=== PATIENT | female | born 1990 | race Caucasian/White ===

== ENCOUNTER 2022-04-30 14:58 | Inpatient (IN) ==
[2022-04-30] MEDS ORDERED: Ringers Solution, Lactated 1,000 ML IVC SCH (15:15)
[2022-04-30] MEDS ORDERED: Naloxone 0.4 MG/ML INJ IVP PRN (15:15)
[2022-04-30] MEDS ORDERED: Metoclopramide 10 MG/2 ML VIAL IVP PRN (15:15)
[2022-04-30] MEDS ORDERED: Azithromycin 500 MG in 0.9 % Sodium Chloride 250 ML IVPB PRN (15:15)
[2022-04-30] MEDS ORDERED: Ringers Solution, Lactated 1,000 ML ONE (15:15)
[2022-04-30] MEDS ORDERED: Oxytocin 30 UNIT/503 ML BAG IVC ONE (15:15)
[2022-04-30] MEDS ORDERED: Famotidine 20 MG/2 ML VIAL IVP PRN (15:15)
[2022-04-30] MEDS ORDERED: CeFAZolin Syr 3,000MG/30 ML 3,000 MG/30 ML SYRINGE IVPB ONE (15:17)
[2022-04-30] MEDS ORDERED: MetroNIDAZOLE 500 MG/100 ML 500 MG/100 ML BAG IVPB ONE (15:18)
[2022-04-30] MEDS ORDERED: *HR* Succinylcholine 200 MG/10 ML VIAL IVP ONE (15:23)
[2022-04-30] MEDS ORDERED: *HR* Propofol 200 MG/20 ML VIAL IVP ONE ×2 (15:23→15:47)
[2022-04-30] MEDS ORDERED: *HR* FentaNYL (PF) 100 MCG/2 ML VIAL ONE (15:28)
[2022-04-30] MEDS ORDERED: *HR* HYDROMORPHONE 2 MG/ML VIAL ONE (15:28)
[2022-04-30] MEDS ORDERED: *HR* Midazolam HCl 2 MG/2 ML VIAL ONE (15:37)
[2022-04-30 15:46] LABS: Basophils % 0.3 %; Eosinophils # 0.1 K/mcL (0.0-0.6); Eosinophils % 1.3 %; Hematocrit 37.4 % (35.3-44.9); Hemoglobin 12.1 g/dL (11.5-15.4); Immature Granulocytes % 1.1 % (0-4); Lymphocytes # 1.1 K/mcL (0.6-4.6); Lymphocytes % 10.2 %; Mean Corpuscular HGB Conc 32.4 g/dL (31.6-35.5); Mean Corpuscular Hemoglobin 27.3 pg (28.0-33.3); Mean Corpuscular Volume 84.4 fL (83.0-100.0); Monocytes # 0.4 K/mcL (0.0-1.3); Monocytes % 3.9 %; Neutrophils # 9.3 K/mcL (1.6-8.9); Platelet Count 191 K/mcL (140-400); Red Blood Count 4.43 M/mcL (3.82-4.97); Red Cell Distribution Width 14.5 % (11.5-14.5); Segmented Neutrophils % 83.2 %; White Blood Count 11.1 K/mcL (4.3-11.1)
[2022-04-30] MEDS ORDERED: *HR* Rocuronium Bromide 50 MG/5 ML VIAL ONE (15:53)
[2022-04-30 15:54] LABS: Alanine Aminotransferase 12 Units/L (7-52); Aspartate Amino Transferase 16 Units/L (13-39); BUN/Creatinine Ratio 19 (6-26); Blood Urea Nitrogen 15 mg/dL (6-20); Lactate Dehydrogenase 198 Units/L (140-271); Uric Acid 6.1 mg/dL (2.3-7.6)
[2022-04-30] MEDS ORDERED: Ketorolac 30 MG/ML VIAL ONE (16:01)
[2022-04-30] MEDS ORDERED: Acetaminophen IV 1,000 MG/100 ML BAG IVPB ONE (16:01)
[2022-04-30] MEDS ORDERED: Ondansetron 4 MG/2 ML VIAL ONE (16:10)
[2022-04-30 16:18] LABS: Amphetamine Screen,Urine Negative ng/mL (Cutoff=1000); Barbiturate Screen,Urine Negative ng/mL (Cutoff=200); Benzodiazepines Screen,Urine Negative ng/mL (Cutoff=200); Cannabinoid Screen,Urine Negative ng/mL (Cutoff = 50); Cocaine Screen,Urine Negative ng/mL (Cutoff= 300); Opiate Screen,Urine Negative ng/mL (Cutoff=300); Phencyclidine Screen,Urine Negative ng/mL (Cutoff=25); Protein/Creatinine Ratio,Urine 1.08 mg/mg (0.00-0.20)
[2022-04-30] MEDS ORDERED: Ketamine *HR* 500 MG/10 ML MDV ONE (16:18)
[2022-04-30] MEDS ORDERED: Promethazine 6.25 MG in Water for inj. (sterile) 20 ML IVPB PRN (17:10)
[2022-04-30] MEDS ORDERED: *HR* FentaNYL (PF) 100 MCG/2 ML VIAL IVP PRN (17:10)
[2022-04-30] MEDS ORDERED: Oxytocin 30 UNIT/503 ML BAG IVC SCH (18:49)
[2022-04-30] MEDS ORDERED: Simethicone 80 MG TAB.CHEW PO PRN (18:49)
[2022-04-30] MEDS ORDERED: *HR* OxyCODONE Immed Rel 5 MG TABLET PO PRN (18:49)
[2022-04-30] MEDS ORDERED: *HR* HYDROmorphone PCA *PREMADE* 20 MG/1MG/ML (20mL) PCA VIAL IVC PRN (18:49)
[2022-04-30] MEDS ORDERED: Ondansetron 4 MG/2 ML VIAL IVP PRN (18:49)
[2022-04-30] MEDS: Acetaminophen 325 MG TABLET PO SCH (20:10)
[2022-04-30] MEDS: Ibuprofen 600 MG TABLET PO SCH (20:10)
[2022-05-01] MEDS: Acetaminophen 325 MG TABLET PO SCH ×3 (03:33→15:16)
[2022-05-01] MEDS: Ibuprofen 600 MG TABLET PO SCH ×3 (03:34→15:16)
[2022-05-01 04:13] LABS: Basophils % 0.2 %; Eosinophils % 0.2 %; Hematocrit 28.4 % (35.3-44.9); Immature Granulocytes % 0.6 % (0-4); Lymphocytes # 1.3 K/mcL (0.6-4.6); Lymphocytes % 8.7 %; Mean Corpuscular HGB Conc 33.1 g/dL (31.6-35.5); Mean Corpuscular Hemoglobin 27.5 pg (28.0-33.3); Mean Platelet Volume 11.3 fL (9.4-12.4); Monocytes # 0.7 K/mcL (0.0-1.3); Monocytes % 4.5 %; Neutrophils # 12.6 K/mcL (1.6-8.9); Platelet Count 176 K/mcL (140-400); Red Blood Count 3.42 M/mcL (3.82-4.97); Red Cell Distribution Width 14.5 % (11.5-14.5); Segmented Neutrophils % 85.8 %; White Blood Count 14.7 K/mcL (4.3-11.1)
[2022-05-01 04:14] LABS: Hemoglobin 9.4 g/dL (11.5-15.4)
[2022-05-01] MEDS: Prenatal Vit/FA 1 EACH TABLET PO SCH (08:20)
[2022-05-01] MEDS: *HR* Enoxaparin 60 MG/0.6 ML SYRINGE SQ SCH ×2 (08:21→20:14)
[2022-05-01] MEDS ORDERED: *HR* OxyCODONE Immed Rel 5 MG TABLET PO ONE (10:00)
[2022-05-01] MEDS: *HR* OxyCODONE Immed Rel 5 MG TABLET PO PRN ×2 (15:17→20:13)
[2022-05-02] MEDS: Ibuprofen 600 MG TABLET PO SCH ×4 (00:54→22:35)
[2022-05-02] MEDS: Acetaminophen 325 MG TABLET PO SCH ×4 (00:54→22:34)
[2022-05-02] MEDS: *HR* OxyCODONE Immed Rel 5 MG TABLET PO PRN ×6 (00:55→22:35)
[2022-05-02] MEDS: Prenatal Vit/FA 1 EACH TABLET PO SCH (09:29)
[2022-05-02] MEDS: *HR* Enoxaparin 60 MG/0.6 ML SYRINGE SQ SCH ×2 (09:29→22:36)
[2022-05-03] MEDS: *HR* OxyCODONE Immed Rel 5 MG TABLET PO PRN ×5 (02:26→18:17)
[2022-05-03] MEDS: Acetaminophen 325 MG TABLET PO SCH ×3 (02:26→18:17)
[2022-05-03] MEDS: Ibuprofen 600 MG TABLET PO SCH ×3 (06:27→18:16)
[2022-05-03 06:41] VITALS: BP 146/79; PULSE 87; TEMP 97.5; O2SAT 99
[2022-05-03] MEDS: *HR* Enoxaparin 60 MG/0.6 ML SYRINGE SQ SCH (10:08)
[2022-05-03] MEDS: Prenatal Vit/FA 1 EACH TABLET PO SCH (10:08)
[2022-05-03] MEDS: Bumetanide 1 MG TABLET PO SCH ×2 (13:25→18:17)
== END 2022-05-03 18:25 | disposition home or self-care (01) | DRG 540 ==
LOC: 1NENULAB → 1NENUOBS 18:52
PROVIDERS: ADMIT Obstetrics & Gynecology; ATTEND Obstetrics & Gynecology